=== PATIENT | female | born 2000 | race Caucasian/White ===

== ENCOUNTER 2024-07-05 18:02 | Emergency (ER) | payer SELFPAY ==
[~2024-07-05] VITALS: Ht 160 cm; Wt 65.0 kg
[2024-07-05 18:18] VITALS: BP 124/71; TEMP 98.7; O2SAT 100
[2024-07-05 18:29] VITALS: PULSE 55; RESP 18; O2SAT 99
[2024-07-05] MEDS ORDERED: LIDO700A30 TP (20:19)
[2024-07-05] MEDS ORDERED: NAPR-681 MT (20:19)
== END 2024-07-05 20:40 | disposition home or self-care (01) ==
LOC: ER 18:02
DX: S16.1XXA Strain of muscle, fascia and tendon at neck level, initial encounter (principal); X58.XXXA Exposure to other specified factors, initial encounter; Y93.89 Activity, other specified; Y92.89 Other specified places as the place of occurrence of the external cause; Y99.8 Other external cause status
CPT/HCPCS: 99283